=== PATIENT | female | born 2000 | race Hispanic/Latino ===

== ENCOUNTER 2021-11-29 21:24 | Day surgery (SDC) | payer OTHER ==
[2021-11-29 22:19] VITALS: BMI 29.2
[2021-11-29] MEDS ORDERED: hydrALAZINE 20 MG/ML VIAL SLOW IVP PRN (23:21)
== END 2021-11-30 04:25 | disposition home health service (06) ==
LOC: CSHERS 21:24 → CSHLD/OP 21:38
PROVIDERS: ATTEND Family Medicine
DX: O99.891 Other specified diseases and conditions complicating pregnancy (principal); K42.9 Umbilical hernia without obstruction or gangrene; G56.02 Carpal tunnel syndrome, left upper limb; Z3A.30 30 weeks gestation of pregnancy
CPT/HCPCS: 76819; 99282

== ENCOUNTER 2022-01-06 18:04 | Day surgery (SDC) | payer OTHER ==
[2022-01-06 19:02] LABS: #Eosinphils 0.1 10x3/uL (0.0-0.5); #Monocytes 0.4 10x3/uL (0.0-1.1); #Neutrophils 7.3 10x3/uL (1.5-8.4); %Basophils 0.1 % (0.0-2.0); %Eosinophils 0.6 % (0.0-6.0); %Lymphocytes 7.8 % (18.0-47.0); %Monocytes 4.6 % (0.0-10.0); %Neutrophils 86.3 % (40.0-75.0); Hemoglobin 9.6 g/dL (12.0-15.5); Mean Corpuscular HGB CONC 31.2 g/dL (32.0-36.0); Mean Corpuscular Hemoglobin 22.7 pg (27.0-33.0); Platelet Count 151 10x3/uL (150-450); RBC Distribution Width 15.2 % (11.5-14.5); Red Blood Cell (RBC) Count 4.22 10x6/uL (3.90-5.03); White Blood Cell (WBC) Count 8.5 10x3/uL (3.5-10.5)
[2022-01-06 19:13] LABS: ALT (SGPT) 9 U/L (8-55); AST (SGOT) 14 U/L (5-34); Albumin 3.2 g/dL (3.5-5.0); Alkaline Phosphatase 116 U/L (40-110); Anion Gap 14 mmol/L (10-20); BUN (Urea Nitrogen) 6 mg/dL (7.0-18.7); Bilirubin, Total 0.5 mg/dL (0.2-1.2); Calc. Creatinine Clearance 0 mL/min (70-130); Calcium 8.3 mg/dL (7.8-10.44); Carbon Dioxide 20 mmol/L (22-29); Chloride 104 mmol/L (98-107); Estimated GFR 130; Globulin 2.8 g/dL (2.4-3.5); Glucose 107 mg/dL (70-105); Potassium 3.6 mmol/L (3.5-5.1); Sodium 134 mmol/L (136-145)
[2022-01-06] MEDS ORDERED: diphenhydrAMINE 50 MG/ML VIAL ONE (19:28)
[2022-01-06] MEDS ORDERED: Ondansetron PF 4 MG/2 ML Vial ONE (19:28)
[2022-01-06 19:42] LABS: SARS-CoV-2 NAA Rapid Test Not Detected (NotDetected)
[2022-01-06] MEDS ORDERED: Oxymetazoline HCl 0.05% ( 15 ML ) NASAL SCH (20:00)
[2022-01-06] MEDS ORDERED: Oseltamivir 75 MG CAP PO SCH (20:15)
[2022-01-06 21:43] VITALS: BMI 34.5
[2022-01-06] MEDS ORDERED: hydrALAZINE 20 MG/ML VIAL SLOW IVP PRN (21:45)
[2022-01-06] MEDS ORDERED: Lactated Ringer's 1,000 ML IV SCH (23:00)
== END 2022-01-06 22:55 | disposition home or self-care (01) ==
LOC: CSHERS 18:04 → CSHLD/OP 21:33
PROVIDERS: ATTEND Family Medicine
DX: O36.8130 Decreased fetal movements, third trimester, not applicable or unspecified (principal); O99.283 Endocrine, nutritional and metabolic diseases complicating pregnancy, third trimester; E86.0 Dehydration; Z20.822 Contact with and (suspected) exposure to COVID-19; O99.513 Diseases of the respiratory system complicating pregnancy, third trimester; J10.1 Influenza due to other identified influenza virus with other respiratory manifestations; Z79.899 Other long term (current) drug therapy; Z3A.35 35 weeks gestation of pregnancy
CPT/HCPCS: 59025; 76819; 80053; 83605; 84484; 85025; 93005; 96360; 96361; 99282; J1200; J2405

== ENCOUNTER 2022-01-10 18:18 | Day surgery (SDC) | payer OTHER ==
[2022-01-10] MEDS ORDERED: hydrALAZINE 20 MG/ML VIAL SLOW IVP PRN (20:28)
== END 2022-01-10 21:41 | disposition home or self-care (01) ==
LOC: CSHLD/OP 18:18 → CJX 21:41
PROVIDERS: ATTEND Family Medicine
DX: O47.03 False labor before 37 completed weeks of gestation, third trimester (principal); Z3A.36 36 weeks gestation of pregnancy; Z79.899 Other long term (current) drug therapy
CPT/HCPCS: 99283

== ENCOUNTER 2022-01-29 02:32 | Inpatient (IN) | payer BC, MEDICAID ==
[2022-01-29] MEDS ORDERED: Promethazine HCl 25 MG/ML VIAL IM PRN ×2 (02:57→04:17)
[2022-01-29] MEDS ORDERED: Ondansetron PF 4 MG/2 ML Vial IVP PRN ×3 (02:57→08:26)
[2022-01-29] MEDS ORDERED: hydrALAZINE 20 MG/ML VIAL SLOW IVP PRN ×2 (02:57→08:26)
[2022-01-29] MEDS ORDERED: Lidocaine 1% (PF) 30 ML VIAL SC PRN (02:57)
[2022-01-29] MEDS ORDERED: NS w/ Oxytocin 30 units 500 ML IV SCH ×2 (03:00→08:26)
[2022-01-29] MEDS ORDERED: Lactated Ringer's 1,000 ML IV SCH (03:00)
[2022-01-29 03:09] VITALS: BMI 34.2
[2022-01-29] MEDS ORDERED: Fentanyl 2 mcg/Bup 0.1% Cadd 100 ML ONE (03:13)
[2022-01-29 03:18] LABS: Hemoglobin 10.1 g/dL (12.0-15.5); Mean Corpuscular HGB CONC 30.7 g/dL (32.0-36.0); Mean Corpuscular Hemoglobin 21.6 pg (27.0-33.0); Mean Corpuscular Volume 70.4 fl (81.6-98.3); Platelet Count 196 10x3/uL (150-450); Red Blood Cell (RBC) Count 4.67 10x6/uL (3.90-5.03); White Blood Cell (WBC) Count 9.3 10x3/uL (3.5-10.5)
[2022-01-29] MEDS ORDERED: Fentanyl 100 MCG/2 ML VIAL ONE (03:38)
[2022-01-29 03:49] LABS: Hep B Surf Ag Non-Reactive S/CO (NonReactive); Syphilis Antibody Nonreactive (Nonreactive); Syphilis Antibody Index 0.03 S/CO (<1.00 Non-Reactive)
[2022-01-29 04:17] LABS: SARS-CoV-2 NAA Rapid Test Not Detected (NotDetected)
[2022-01-29] MEDS ORDERED: Naloxone HCl 0.4 mg/ml Vial IVP PRN ×2 (04:17)
[2022-01-29] MEDS ORDERED: Lactated Ringer's 500 ML IV PRN (04:17)
[2022-01-29] MEDS ORDERED: diphenhydrAMINE 50 MG/ML VIAL IVP PRN (04:17)
[2022-01-29] MEDS ORDERED: ePHEDrine Sulfate 50 MG/10 ML VIAL SLOW IVP PRN (04:17)
[2022-01-29] MEDS ORDERED: Acetaminophen 325 MG TAB PO PRN (04:17)
[2022-01-29] MEDS ORDERED: Moisturizing Cream (Eucerin) 113 GM JAR TOP PRN (04:17)
[2022-01-29] MEDS ORDERED: Fentanyl 2 mcg/Bupivacaine 0.1% Cassette 100 ML EPIDURAL SCH (04:30)
[2022-01-29] MEDS ORDERED: Communication Order-Pharmacy FS SCH (04:30)
[2022-01-29] MEDS ORDERED: NS w/ Oxytocin 30 units 500 ML ONE (04:44)
[2022-01-29] MEDS ORDERED: Misoprostol 200 MCG TAB ONE (04:45)
[2022-01-29] MEDS ORDERED: Carboprost 250 MCG/ML AMP ONE (04:46)
[2022-01-29] MEDS ORDERED: diphenhydrAMINE 25 MG CAP PO PRN (08:26)
[2022-01-29] MEDS ORDERED: Ferrous Sulfate 325 MG TAB PO SCH ×2 (08:26→08:30)
[2022-01-29] MEDS ORDERED: Boostrix 0.5 ML (Tdap) VIAL (>/=7 yrs of age) IM ONE (08:26)
[2022-01-29] MEDS ORDERED: Bisacodyl 10 MG SUPP PR PRN (08:26)
[2022-01-29] MEDS ORDERED: Milk Of Magnesia 30 ML UDCUP PO PRN (08:26)
[2022-01-29] MEDS ORDERED: HYDROcodone/Acetaminophen 5/325 mg Tablet PO PRN (08:26)
[2022-01-29] MEDS ORDERED: Lanolin Ointment 7 GM TUBE TOP PRN (08:26)
[2022-01-29] MEDS: Docusate 100 MG CAP PO SCH ×2 (09:31→22:28)
[2022-01-29] MEDS: Prenatal Vitamin 1 TAB PO SCH (09:31)
[2022-01-29] MEDS: Ibuprofen 800 MG TAB PO SCH ×2 (13:13→22:28)
[2022-01-29] MEDS: Ferrous Sulfate 325 MG TAB PO SCH (15:43)
[2022-01-30] MEDS: Ibuprofen 800 MG TAB PO SCH ×2 (05:40→14:24)
[2022-01-30 07:56] VITALS: TEMP 98.2
[2022-01-30] MEDS: Ferrous Sulfate 325 MG TAB PO SCH ×2 (08:26→17:47)
[2022-01-30] MEDS: Docusate 100 MG CAP PO SCH (08:28)
[2022-01-30] MEDS: Prenatal Vitamin 1 TAB PO SCH (08:28)
[2022-01-30 08:41] VITALS: BP 122/74
== END 2022-01-30 17:30 | disposition home or self-care (01) | DRG 807 ==
LOC: CSHLD/OP 02:32 → CSHLD 03:06 → CSHPP 08:35
PROVIDERS: ADMIT Family Medicine; ATTEND Family Medicine
PROC: 10E0XZZ Delivery of Products of Conception, External Approach (ICD-10-PCS; principal; 2022-01-29)
DX: O80 Encounter for full-term uncomplicated delivery (principal); Z37.0 Single live birth; Z20.822 Contact with and (suspected) exposure to COVID-19; Z3A.39 39 weeks gestation of pregnancy
CPT/HCPCS: 36415; 51702; 85027; 86780; 86850; 86900; 86901; 87340; 99285; U0002